=== PATIENT | male | born 1995 | race Caucasian/White ===

== ENCOUNTER 2020-07-25 18:37 | Emergency (ER) | payer SELFPAY ==
[2020-07-25] MEDS ORDERED: CLINDAMYCIN 150 MG CAP ONE (19:18)
[2020-07-25] MEDS ORDERED: KETOROLAC 30MG VIAL (30MG/ML) ONE (19:18)
== END 2020-07-25 19:38 | disposition home or self-care (01) ==
LOC: EDH 18:37
DX: K02.9 Dental caries, unspecified (principal); K04.7 Periapical abscess without sinus; Z88.0 Allergy status to penicillin
CPT/HCPCS: 96372; 99283; J1885